=== PATIENT | female | born 2000 | race Asian ===

== ENCOUNTER 2024-10-23 21:08 | Emergency (ER) | payer MEDICAID ==
[~2024-10-23] VITALS: Ht 165.1 cm; Wt 90.7 kg
[2024-10-23] MEDS ORDERED: IBUPROFEN 600 MG TABLET ONE (21:48)
[2024-10-23] MEDS: IBUPROFEN 600 MG TABLET PO ONE (21:52)
[2024-10-24] MEDS ORDERED: KETO10TA2 PO (01:31)
[2024-10-24 01:42] VITALS: BP 100/63; TEMP 98.4; O2SAT 100
== END 2024-10-24 01:43 | disposition home or self-care (01) ==
LOC: ER 21:26
DX: S92.354A Nondisplaced fracture of fifth metatarsal bone, right foot, initial encounter for closed fracture (principal); X50.1XXA Overexertion from prolonged static or awkward postures, initial encounter; Y93.01 Activity, walking, marching and hiking; Y92.89 Other specified places as the place of occurrence of the external cause; Y99.8 Other external cause status
CPT/HCPCS: 73610-TC; 73630-TC; 73700-TC